=== PATIENT | male | born 1995 | race Caucasian/White ===

== ENCOUNTER 2019-04-06 13:57 | Emergency (ER) | payer BC, OTHER ==
[2019-04-06] MEDS ORDERED: Famotidine IV* 10 MG/ML 2 ML (20 mg) IV SLOW PU ONE (14:11)
--- NOTE | 2019-04-06 16:26 | ED ---
Allergic Reaction/Systemic - HPI Summary HPI Summary: This patient is a 23-year-old male who presents to the ED with diffuse allergic reaction which began this morning upon wakening. Patient denies any known allergies. He states he has never had an allergic reaction the past. He denies any new food, lotions, perfumes, laundry detergents or soaps or any new environments. He denies any being stings or other insect bites. He states he awoke with a diffuse reaction of hives this morning approximately 5 hours ago and just recently developed right-sided throat pain/feeling of tightness and swelling as well as feeling of tightness into the chest. He does endorse some difficulty with breathing. He called EMS/ambulance. He took no medications at home prior to arrival. - History of Current Complaint Chief Complaint: EDAllergicReaction Time Seen by Provider: 04/06/19 14:03 Hx Obtained From: Patient Onset/Duration: Sudden Onset Timing: Constant Severity Initially: Severe Severity Currently: Severe Pain Intensity: 0 Pain Scale Used: 0-10 Numeric Character: Swelling Associated Signs And Symptoms: Positive: Throat Tightening - Related Hx Possible Reaction To: Unknown - Allergies/Home Medications Allergies/Adverse Reactions: Allergies Allergy/AdvReac Type Severity Reaction Status Date / Time No Known Allergies Allergy Verified 04/06/19 21:23 PMH/Surg Hx/FS Hx/Imm Hx Previously Healthy: Yes - Immunization History Hx Pertussis Vaccination: No Immunizations Up to Date: Yes Infectious Disease History: No Infectious Disease History: Denies: Traveled Outside the [place] in Last 30 Days - Social History Occupation: Unemployed Lives: With Family Alcohol Use: Occasionally Hx Substance Use: No Substance Use Type: Reports: None Hx Tobacco Use: No Smoking Status (MU): Never Smoked Tobacco Review of Systems Negative: Fever, Chills, Fatigue, Skin Diaphoresis Positive: Sore Throat - right sided throat discomfort - tightening Negative: Palpitations, Chest Pain Positive: Shortness Of Breath. Negative: Cough Genitourinary: Negative Positive: no symptoms reported, see HPI Negative: Rash, Bruising Neurological: Negative All Other Systems Reviewed And Are Negative: Yes Physical Exam Triage Information Reviewed: Yes Vital Signs On Initial Exam: Initial Vitals Pulse Pulse Ox 67 100 04/06/19 14:06 04/06/19 14:06 Vital Signs Reviewed: Yes Appearance: Positive: Well-Appearing, Well-Nourished Skin: Positive: Warm, Skin Color Reflects Adequate Perfusion, Other - hives diffuse Head/Face: Positive: Normal Head/Face Inspection Eyes: Positive: EOMI, ERICKA, Conjunctiva Clear ENT: Positive: Other - airway patent Neck: Positive: Supple, No Lymphadenopathy Respiratory/Lung Sounds: Positive: Clear to Auscultation, Breath Sounds Present Cardiovascular: Positive: RRR, Pulses are Symmetrical in both Upper and Lower Extremities Musculoskeletal: Positive: Normal, Strength/ROM Intact Neurological: Positive: Speech Normal AVPU Assessment: Alert Procedures - Sedation Patient Received Moderate/Deep Sedation with Procedure: No Diagnostics - Vital Signs Vital Signs Temp Pulse Resp BP Pulse Ox 04/06/19 14:38 63 15 144/70 100 04/06/19 14:21 97.2 F 70 16 158/77 100 04/06/19 14:08 67 16 158/77 100 04/06/19 14:06 67 100 - Laboratory Lab Statement: Any lab studies that have been ordered have been reviewed, and results considered in the medical decision making process. Allergic Reaction Course/Dx - Course Course Of Treatment: On arrival into the ED, the patient has a diffuse allergic hive reaction. He is also endorsing swelling and right-sided throat tightness to the right side of the throat. Also is endorsing chest tightness. Prior to arrival, ambulance gave 10 Decadron, 0.3 at the, 50 Benadryl all IV. Patient continues to have diffuse hives, however airway is patent. Lungs CTA with no diffuse wheezing. Patient states he did not feel any improvement. Famotidine 40 mg given. He was closely observed. After approximately 15 minutes, patient states he is feeling improved. Hive reaction has reduced significantly. On further evaluation 1 hour later, symptoms have improved and denies any airway involvement. He is assessed for 3.5 hours. Pt asymptomatic. Hives, chest pressure/pain, shortness of breath and pain in the right-sided throat all have completely resolved. Patient will be given prednisone 4 days as well as encouraged to hot die picker Benadryl [id number]. He understands return precautions and offers no complaints. - Diagnoses Differential Diagnosis/HQI/PQRI: Positive: Anaphylaxis, Angioedema, Bronchospasm , Local Allergic Reaction, Urticaria Provider Diagnoses: Allergic reaction Discharge ED - Sign-Out/Discharge Documenting (check all that apply): Patient Departure - Discharge Plan Condition: Stable Disposition: HOME Prescriptions: predniSONE TAB* [Deltasone TAB*] 50 mg PO DAILY #4 tab MDD 1 Patient Education Materials: Anaphylaxis (ED), General Allergic Reaction (ED) Referrals: No Primary Care Phys,NOPCP [Primary Care Provider] - Additional Instructions: Please hot die picker Benadryl at the pharmacy If he develop any symptoms of hives, throat pain or difficulty breathing, take 50 mg Benadryl and call the ambulance Take 1 tab prednisone daily x 4 days - Billing Disposition and Condition Condition: STABLE Disposition: Home
[2019-04-06 17:09] VITALS: BP 139/67
== END 2019-04-06 17:07 | disposition home or self-care (01) ==
LOC: ED 13:57
DX: T78.40XA Allergy, unspecified, initial encounter (principal); X58.XXXA Exposure to other specified factors, initial encounter
CPT/HCPCS: 96374; 96375; 99283

== ENCOUNTER 2019-04-06 21:16 | Emergency (ER) | payer BC, OTHER ==
--- NOTE | 2019-04-06 22:04 | ED ---
Allergic Reaction/Systemic - HPI Summary HPI Summary: Pt is a 23 y/o M presenting to the ED for a chief complaint of allergic reaction with urticaria. Pt is unsure of the allergen that caused the allergic reaction, but pt believes that a window cleaner used for laptops might be the allergen. Pt awoke on 04/06/19 with urticaria diffuse throughout the body. Pt was previously seen at [facility] [place] on 04/06/19 and was given epinephrine and an antihistamine with relief of symptoms. Pt took Prednisone and was discharged from the ED. 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 Pt reports previous throat tightness that has since resolved. Pt denies SOB, nausea, or vomiting. Pt denies hives in the past. Pt denies any significant PMHx, PSHx, FMHx, or medications. - History of Current Complaint Chief Complaint: EDAllergicReaction Time Seen by Provider: 04/06/19 21:24 Hx Obtained From: Patient Onset/Duration: Sudden Onset, Still Present Timing: Constant Severity Initially: Mild Severity Currently: Mild Pain Intensity: 0 Pain Scale Used: 0-10 Numeric Location: Diffuse - Throughout the body Character: Hives Aggravating Factor(s): Nothing Alleviating Factor(s): Antihistamines, Epinephrine Associated Signs And Symptoms: Positive: Throat Tightening - Resolved. Negative : Nausea, Vomiting - Related Hx Possible Reaction To: Unknown - Allergies/Home Medications Allergies/Adverse Reactions: Allergies Allergy/AdvReac Type Severity Reaction Status Date / Time No Known Allergies Allergy Verified 04/06/19 21:23 PMH/Surg Hx/FS Hx/Imm Hx Previously Healthy: Yes Endocrine/Hematology History: Denies: Hx Diabetes Cardiovascular History: Denies: Hx Hypertension Sensory History: Denies: Hx Legally Blind, Hx Deafness Opthamlomology History: Denies: Hx Legally Blind EENT History: Denies: Hx Deafness - Surgical History Surgical History: None Surgery Procedure, Year, and Place: None Infectious Disease History: No Infectious Disease History: Denies: Traveled Outside the [place] in Last 30 Days - Family History Known Family History: Negative: Diabetes - Social History Alcohol Use: Occasionally Hx Substance Use: No Substance Use Type: Reports: None Hx Tobacco Use: No Smoking Status (MU): Never Smoked Tobacco Review of Systems Positive: Other - Positive throat tightness Negative: Shortness Of Breath Negative: Vomiting, Nausea Positive: Other - Positive urticaria diffuse throughout the body All Other Systems Reviewed And Are Negative: Yes Physical Exam - Summary Physical Exam Summary: Constitutional: Well-developed, Well-nourished, Alert. (-) Distressed Skin: Warm, Dry. Diffuse urticaria of the face, left forearm, left flank, and bilateral shins. HENT: Normocephalic; Atraumatic Eyes: Conjunctiva normal Neck: Musculoskeletal ROM normal neck. (-) JVD, (-) Stridor, (-) Nuchal rigidity Cardio: Rhythm regular, rate normal, Heart sounds normal; Intact distal pulses; Radial pulses are 2+ and symmetric. (-) Murmur Pulmonary/Chest wall: Effort normal. (-) Respiratory distress, (-) Wheezes, (-) Rales Abd: Soft, (-) tenderness, (-) Distension, (-) Guarding, (-) Rebound Musculoskeletal: (-) Edema Lymph: (-) Cervical adenopathy Neuro: Alert, Oriented x3 Psych: Mood and affect Normal Triage Information Reviewed: Yes Vital Signs On Initial Exam: Initial Vitals Temp Pulse Resp BP Pulse Ox 98.8 F 78 16 160/78 97 04/06/19 21:17 04/06/19 21:17 04/06/19 21:17 04/06/19 21:17 04/06/19 21:17 Vital Signs Reviewed: Yes Procedures - Sedation Patient Received Moderate/Deep Sedation with Procedure: No Diagnostics - Vital Signs Vital Signs Temp Pulse Resp BP Pulse Ox 04/06/19 21:17 98.8 F 78 16 160/78 97 - Laboratory Lab Statement: Any lab studies that have been ordered have been reviewed, and results considered in the medical decision making process. Allergic Reaction Course/Dx - Course Course Of Treatment: 23 y/o male p/w hives. Seen earlier in ED after getting epi /decadron/benadryl. - no airway involvement, was concerned about hives. - just took prednisone and benadryl. Thinks he was re exposed to window cleaner. His friends are cleaning the room now. Given epi pen Rx. - Diagnoses Provider Diagnoses: Hives, Allergic reaction Discharge ED - Sign-Out/Discharge Documenting (check all that apply): Patient Departure - Discharge - Discharge Plan Condition: Stable Disposition: HOME Prescriptions: EPINEPHrine [Epipen 2-Dao] 0.3 mg IJ ONCE 1 Days #1 [email or web address] Patient Education Materials: Urticaria (ED) Referrals: [facility] - Sahil ROSALES [Primary Care Provider] - Additional Instructions: Epi pen: Carry an EPI-PEN (or similar device) WITH YOU AT ALL TIMES. You should keep one on your person at ALL TIMES. Keep one in your wallet, purse, or pocket, one at home, one at work, and one in your car. If you feel symptoms of another allergic reaction coming on- use the EPI-PEN IMMEDIATELY and then call 911. DO NOT WAIT TO INJECT YOURSELF IF YOU HAVE SYMPTOMS- THE DELAY COULD BE FATAL. IF YOU HAVE ANY DOUBT, it is better to inject yourself rather than wait. If you still have symptoms 5 minutes after giving yourself an EPI-PEN, give yourself a second epi-pen injection. Make sure to check the expiration dates on your epi- pen and refill them BEFORE they . - Billing Disposition and Condition Condition: STABLE Disposition: Home - Attestation Statements Document Initiated by Meredith: Yes Documenting Scribe: Jalyn Villareal Provider For Whom Meredith is Documenting (Include Credential): Vashti Lemus MD Scribe Attestation: Jalyn Manriquez, scribed for Vashti Lemus MD on 04/07/19 at 0213. Scribe Documentation Reviewed: Yes Provider Attestation: The documentation as recorded by the Jalyn mckee accurately reflects the service I personally performed and the decisions made by , Vashti Lemus MD Status of Scribe Document: Viewed
[2019-04-06 22:50] VITALS: BP 127/82
== END 2019-04-06 22:49 | disposition home or self-care (01) ==
LOC: ED 21:16
DX: L50.9 Urticaria, unspecified (principal); T78.40XA Allergy, unspecified, initial encounter; X58.XXXA Exposure to other specified factors, initial encounter
CPT/HCPCS: 99282